=== PATIENT | female | born 1995 | race American Indian/Alaskan Native ===

== ENCOUNTER 2019-01-20 11:12 | Outpatient (CLI) | payer OTHER | END 2019-01-20 14:26 | disposition home or self-care (01) | LOC: OBS/DEL 11:12 | DX: O60.03 Preterm labor without delivery, third trimester (principal); Z34.03 Encounter for supervision of normal first pregnancy, third trimester ==

== ENCOUNTER 2019-03-03 14:15 | Outpatient (CLI) | payer OTHER ==
[2019-03-03] MEDS ORDERED: OBSTETRIX DHA1 EACH PO (17:10)
== END 2019-03-04 14:13 | disposition home or self-care (01) ==
LOC: PRENATAL 14:15 → OBS/DEL 14:15
DX: O76 Abnormality in fetal heart rate and rhythm complicating labor and delivery (principal); O47.1 False labor at or after 37 completed weeks of gestation; Z34.83 Encounter for supervision of other normal pregnancy, third trimester

== ENCOUNTER 2019-03-13 07:14 | Inpatient (IN) | payer OTHER ==
[~2019-03-13] VITALS: Ht 162.6 cm; Wt 92.1 kg
[~2019-03-13 07:14] MED LIST: OBSTETRIX DHA1 EACH PO
== END 2019-03-15 12:09 | disposition home or self-care (01) | DRG 807 ==
LOC: LDR 07:14 → OB/GYN 07:14 → LDR 14:17 → OB/GYN 17:33
PROVIDERS: ADMIT Obstetrics & Gynecology
PROC: 10E0XZZ Delivery of Products of Conception, External Approach (ICD-10-PCS; principal; 2019-03-13)
PROC: 3E033VJ Introduction of Other Hormone into Peripheral Vein, Percutaneous Approach (ICD-10-PCS; 2019-03-13)
PROC: 4A1HXCZ Monitoring of Products of Conception, Cardiac Rate, External Approach (ICD-10-PCS; 2019-03-13)
DX: O80 Encounter for full-term uncomplicated delivery (principal); Z37.0 Single live birth; Z3A.39 39 weeks gestation of pregnancy